=== PATIENT | female | born 1955 | race African-American/Black ===

== ENCOUNTER 2018-05-01 09:42 | Emergency (ER) | payer MEDICARE, MEDICAID ==
[~2018-05-01] VITALS: Ht 160 cm; Wt 59.0 kg
[~2018-05-01 09:42] MED LIST: AMLO2.5T45 PO; BACL-141 PO; FOLI-43 PO; FURO20TA4 PO; GABA-531 PO; LOSA100T14 PO; OXYC30TA89 PO; PROT40 PO; SIMV20TA6 PO; TRAM50TA3 PO; [UNRECOGNIZED DRUG - CODE] TP
[2018-05-01 09:44] VITALS: BP 124/65
== END 2018-05-01 16:29 | disposition left against medical advice (07) ==
LOC: ER 09:42
DX: Z53.21 Procedure and treatment not carried out due to patient leaving prior to being seen by health care provider (principal); I10 Essential (primary) hypertension; E11.9 Type 2 diabetes mellitus without complications; M19.90 Unspecified osteoarthritis, unspecified site; I69.354 Hemiplegia and hemiparesis following cerebral infarction affecting left non-dominant side; Z87.891 Personal history of nicotine dependence